=== PATIENT | female | born 1955 | race Caucasian/White ===

== ENCOUNTER 2016-03-10 06:20 | Inpatient (IN) | payer BC ==
[2016-02-17 13:14] VITALS: BMI 34.0
--- NOTE | 2016-02-17 13:42 | PAT Medication Instructions ---
Service Date Feb 17, 2016. Current Home Medication List Acetaminophen (Tylenol), 1,000 MG PO TID PRN Ibuprofen (Advil), 800 MG PO PRN Lansoprazole (Prevacid), 15 MG PO DAILY PRN for PRN Loperamide Hcl (Imodium), 2 MG PO PRN Multivitamin (Multivitamin), 1 TAB PO QAM Tramadol (Ultram), 50-100 MG PO TID PRN for PRN Medication Instructions For Your Scheduled Surgery - Check with surgeon for instructions: Ibuprofen (Advil), 800 MG PO PRN - Hold the following medications the morning of surgery: Loperamide Hcl (Imodium), 2 MG PO PRN Multivitamin (Multivitamin), 1 TAB PO QAM - Take the following medications the morning of surgery with a sip of water: Lansoprazole (Prevacid), 15 MG PO DAILY PRN for PRN (if needed) Acetaminophen (Tylenol), 1,000 MG PO TID PRN (if needed) Tramadol (Ultram), 50-100 MG PO TID PRN for PRN (okay to take up to 4 hours prior to surgery if needed) - Take the following medications as scheduled the night before surgery: Loperamide Hcl (Imodium), 2 MG PO PRN (if needed) Lansoprazole (Prevacid), 15 MG PO DAILY PRN for PRN (if needed) Acetaminophen (Tylenol), 1,000 MG PO TID PRN (if needed) Tramadol (Ultram), 50-100 MG PO TID PRN for PRN (if needed) If you have any questions please call us at [phone] (Tammy Asencio PA-C) or [phone] or [phone]
--- NOTE | 2016-02-17 14:36 | DIAGNOSTIC IMAGING REPORT ---
CHEST 2 VIEWS ROUTINE CLINICAL HISTORY: Preoperative evaluation COMPARISON STUDY: Chest radiograph February 05, 2010 FINDINGS: Lung volumes are at the lower limits of normal. There is no consolidation. Pulmonary vascularity is normal. Cardiac size is at the upper limits of normal. The appearance of the chest is unchanged. IMPRESSION: No acute cardiopulmonary findings. Electronically signed by: Marcial Christie M.D. 02/17/2016 2:35 PM
[2016-02-17 15:01] LABS: URINE APPEARANCE CLOUDY (CLEAR); URINE BILIRUBIN NEG (NEG); URINE COLOR YELLOW; URINE EPITHELIAL CELL AUTO >30 /lpf (0-5); URINE NITRITE NEG (NEG); URINE SPECIFIC GRAVITY 1.017 (1.000-1.030); UROBILINOGEN NEG (NEG); ZZUR CULT IF INDIC CLEAN CATCH YES
[2016-02-17 15:03] LABS: MANUAL MICROSCOPIC REQUIRED? NO; REVIEW REQ? NO
[2016-02-17 15:13] LABS: INR 0.9 (0.9-1.1); PARTIAL THROMBOPLASTIN RATIO 1.1
[2016-02-17 15:22] LABS: BUN/CREATININE RATIO 19.4 (10-20); CREATININE 0.69 mg/dl (0.60-1.20); POTASSIUM 4.1 mmol/L (3.5-5.1)
[2016-02-17 15:32] LABS: CALCIUM 9.3 mg/dl (8.5-10.1)
--- NOTE | 2016-03-08 11:28 | HISTORY & PHYSICAL EXAMINATION ---
DATE OF ADMISSION: 03/09/2016 CHIEF COMPLAINT: Left hip pain. HISTORY OF PRESENT ILLNESS: Bhavya is a 60-year-old female with a 5-year history of pain in her left hip. She rates her pain a 10/10. She has pain with her daily activities. She has limited standing and walking tolerance. Pain is worse with weightbearing. The patient uses a cane to ambulate. She has been on anti-inflammatories and has failed conservative treatment. She is scheduled for left hip replacement. PAST MEDICAL HISTORY: Hypercholesterolemia, osteoarthritis, rheumatoid arthritis, reflux, interstitial cystitis of the bladder. She denies heart disease, diabetes or DVT. PAST SURGICAL HISTORY: Right hip arthroplasty, , left breast biopsy, colonoscopy and cystoscopy. SOCIAL HISTORY: The patient rarely drinks alcohol. She lives in a 2-sarah home. She is and works for [employer]. FAMILY HISTORY: Negative for DVT. MEDICATIONS: Meloxicam 15 mg daily, atorvastatin 10 mg daily, Prevacid p.r.n., Imodium p.r.n., Tylenol p.r.n., ibuprofen 800 mg p.r.n., tramadol 50 mg p.r.n., multivitamin 1 daily. REVIEW OF SYSTEMS: See HPI. Ten other systems reviewed, all negative. PHYSICAL EXAMINATION: VITAL SIGNS: Height 5 feet 8 inches, weight 235 pounds. BMI is 36. GENERAL: This is a well-developed, well-nourished female who is alert and oriented x3. Mood and affect are appropriate. HEENT: Normocephalic, atraumatic. Mucous membranes are moist and intact. NECK: Supple without lymphadenopathy. HEART: Regular rate and rhythm without murmurs, rubs or gallops. LUNGS: Clear to auscultation without wheezes or rhonchi. ABDOMEN: Soft and nontender. Bowel sounds are equal and active. EXTREMITIES: No ecchymosis, redness or warmth. Logroll of the hip reproduces pain in the groin. She is neurovascularly intact with +5/5 strength. X-RAY EXAMINATION: AP and lateral views show joint space narrowing and osteophyte formation. IMPRESSION: Degenerative joint disease, left hip. PLAN: The patient will be admitted for a left total hip arthroplasty. We will plan on aspirin for DVT prophylaxis. PCP is Dr. Mcneil in [place], [place]. She has [facility] for home physical therapy.
[~2016-03-10] VITALS: Ht 177.8 cm; Wt 106.6 kg
[2016-03-10] VITALS (7 sets, daily range): BP systolic 120–153; BP diastolic 65–86; PULSE 63–76; TEMP 36.5–36.9; O2SAT 95–100; Ht 177.8 cm; Wt 106.6 kg
[~2016-03-10 06:20] MED LIST: ACET-1256 PO; ACETAMINOPHEN 500 MG TAB PO SCH; CEFAZOLIN 2000 MG/60 ML D5W 60 ML IV SCH; CeleBREX 200 MG CAP PO SCH; DEXAMETHASONE 4 MG TAB PO SCH; FAMOTIDINE 20 MG TAB PO SCH; GABAPENTIN 300 MG CAP PO SCH; IBUP-1050 PO; IMD/2 PO; LACTATED RINGER'S 1000ML 500 ML IV ONE; LACTATED RINGER'S 1000ML IV SCH; LANS15CA6 PO; METOCLOPRAMIDE HCL 10 MG TAB PO SCH; MULT-506 PO; OXYCODONE HCL 10 MG TABCR (OXYCONTIN) PO SCH; POLYMYXIN B SULFATE 100,000 UNITS in NSS 100ML IR SCH; ROPIVACAINE 5MG/ML 30 ML 150 MG, BUPIVACAINE/EPINEPHR 0.5% MPF 30 ML, KETOROLAC TROMETH... INFIL SCH; TRAM-10 PO; TRANEXAMIC ACID INJ 1,000 MG in SODIUM CHLORIDE 0.9% 100ML 100 ML IV SCH; VANCOMYCIN INJ 400 MG in NSS 100ML IR SCH
[2016-03-10] MEDS ORDERED: BUPIVACAINE 0.5 % 5 MG/1 ML PF 10ML VIAL ONE (06:24)
--- NOTE | 2016-03-10 07:02 | History & Physical Bridge Note ---
H&P Re-Evaluation Bridge Note: I have examined the patient, reviewed the History & Physical and in the interval since the performance of the History & Physical I have noted the following changes of clinical significance: No changes noted
[2016-03-10] MEDS ORDERED: ATOR10TA82 PO (07:38)
[2016-03-10] MEDS ORDERED: MELO7.5T5 PO (07:38)
[2016-03-10] MEDS ORDERED: MIDAZOLAM HCL 1 MG/ML 2ML VIAL ONE (08:24)
[2016-03-10] MEDS ORDERED: PROPOFOL IV EMULSION 10 MG/ML 20 ML VIAL IV ONE (08:45)
[2016-03-10] MEDS: TRANEXAMIC ACID INJ 1,000 MG in SODIUM CHLORIDE 0.9% 100ML 100 ML IV SCH ×2 (08:58→11:36)
[2016-03-10] MEDS ORDERED: ATROPINE SULFATE 0.1 MG/ML 5ML SYR IV PRN (09:00)
[2016-03-10] MEDS ORDERED: ONDANSETRON INJ 2 MG/ML 2 ML VIAL IV PRN ×2 (09:00→11:15)
[2016-03-10] MEDS ORDERED: EpHEDrine SULFATE INJ 50 MG/ML AMP IV PRN (09:00)
[2016-03-10] MEDS ORDERED: FENTANYL CITRATE INJ 50 MCG/1 ML 2 ML VIAL IV PRN (09:00)
[2016-03-10] MEDS ORDERED: ORTHO JOINT ANESTHETIC ONE ×2 (09:23→09:49)
[2016-03-10] MEDS ORDERED: LIDOCAINE HCL 2% 2 ML VIAL (20MG/ML) ONE (10:05)
[2016-03-10] MEDS ORDERED: BACITRACIN 50000 UNIT VIAL IR ONE (10:42)
[2016-03-10] MEDS ORDERED: POVIDONE-IODINE OP SOLN 30 ML BTL TOP ONE (10:56)
--- NOTE | 2016-03-10 11:09 | [facility] Post Operative Brief Note ---
Immediate Operative Summary Operative Date Mar 10, 2016. Pre-Operative Diagnosis Degenerative joint disease, left hip Post-Operative Diagnosis same as preop Procedure(s) Performed Left Total Hip Arthroplasty, Direct Anterior Approach, Uncemented Surgeon Dr. Forrest Conn Senior Administrator Support Surgeon(s) ARLEEN De Los Santos Estimated Blood Loss 150ML Findings djd obese Specimens A: Left Femoral Head Complication(s) None Disposition Recovery Room / PACU
[2016-03-10] MEDS ORDERED: TRAMADOL HCL 50 MG TAB PO PRN (11:15)
[2016-03-10] MEDS ORDERED: METOCLOPRAMIDE HCL INJ 5 MG/ML 2 ML VIAL IV PRN (11:15)
[2016-03-10] MEDS ORDERED: MAGNESIUM HYDROXIDE SUSP 30 ML UDC PO PRN (11:15)
[2016-03-10] MEDS ORDERED: ALUMINUM/MAGNESIUM/SIMETH (MAALOX MAX) 30 ML UDC PO PRN (11:15)
[2016-03-10] MEDS ORDERED: MoRPHine SULFATE 2 MG/ML CARP IV PRN (11:15)
[2016-03-10] MEDS ORDERED: BISACODYL 10 MG SUPP PR PRN (11:15)
[2016-03-10] MEDS ORDERED: DiphenhydrAMINE HCL 50 MG/ML VIAL IV PRN (11:15)
[2016-03-10] MEDS ORDERED: ZOLPIDEM TARTRATE 5 MG TAB PO PRN (11:15)
[2016-03-10] MEDS ORDERED: SOD PHOSPHATE/SOD BIPHOSPHATE ENEMA 132 ML BTL PR PRN (11:15)
--- NOTE | 2016-03-10 11:30 | DIAGNOSTIC IMAGING REPORT ---
LEFT HIP UNILATERAL 1 VIEW CLINICAL HISTORY: LT ANTERIOR TOTAL COMPARISON STUDY: None. FINDINGS: Total fluoroscopy time was 11 seconds. A single fluoroscopic spot image was obtained. There is a left total hip arthroplasty. No fracture or dislocation. The visualized hardware appears intact. Note, the entire acetabular cup is not included on this image. IMPRESSION: Fluoroscopy provided for left total hip arthroplasty. Electronically signed by: Noé Wallace M.D. 03/10/2016 11:28 AM
--- NOTE | 2016-03-10 11:52 | OPERATIVE REPORT ---
DATE OF OPERATION: 03/10/2016 PREOPERATIVE DIAGNOSIS: Degenerative arthritis, left hip. POSTOPERATIVE DIAGNOSIS: Same. PROCEDURE: Left total hip replacement. SURGEON: Dr. Conn. DEPUTY OF COUNTER INTELLIGENCE: LETICIA Mcadams. ANESTHESIA: Spinal. BLOOD LOSS: 150 mL. REPLACEMENT FLUIDS: 1800 mL of crystalloid. DRAINS: Hemovac x2. CULTURES: None. COMPLICATIONS: None. COMPONENTS USED: [employer] hip system: Acetabulum size 52, femur size 6 high offset, femoral head 0, neck length 36 mm. NOTE: Gonzalo Wheatley PA-C was present and assisted throughout due to the complicated nature of this case. He helped with preparation and set up, first assisted throughout and personally closed the fascial, subcutaneous and skin layers and applied the postoperative dressing. DESCRIPTION: Following satisfactory spinal, the patient was supine. The left leg was placed in the traction device and the right leg in the well leg moore. Leg was prepared with ChloraPrep and draped sterilely. Following a surgical time-out, an anterior approach was performed in the interval between the sartorius and tensor muscles. The approach was difficult. The patient had a thick hard subcutaneous fat layer. The fascia was divided and the circumflex femoral vessels were identified and ligated. There was a great deal of fat over the anterior capsule. An anterior capsulotomy was performed exposing the arthritic femoral neck and head which were trimmed and removed. The acetabular self-retraining retractor was placed. Acetabular reaming was completed. The 52 shell was impacted under fluoroscopic guidance into an anatomic position and secured with a dome screw. Local anesthetic and the poly liner were placed after irrigation. The femur was placed into position of external rotation, extension and adduction. The femoral canal was prepared up to the size 6. A trial reduction with a 0 neck length head showed the best soft tissue tension and leg lengths restored using fluoroscopy with anatomic landmarks. The hip was dislocated. The trial component removed. After irrigation with local anesthetic the final implant was placed. The hip was irrigated and reduced. A Betadine soak was performed for 5 minutes. The Betadine was then irrigated. The capsule was closed with 1-0 Vicryl interrupted. The fascia after a drain was placed with a running suture of 1 Vicryl, subcutaneous tissues with 1 and 2-0 Vicryl and the skin with a running subcuticular stitch of 3-0 V-Loc. Dermabond and a dry dressing were applied. The patient was returned to her bed in stable condition. I attest to the content of the Intraoperative Record and any orders documented therein. Any exceptio ns are noted below.
--- NOTE | 2016-03-10 12:03 | Anesthesiology Progress Note ---
Anesthesia Post Op Note Date & Time Mar 10, 2016 at 12:03 Vital Signs Pain Intensity: 0 Vital Signs Past 12 Hours Date Time Temp Pulse Resp B/P Pulse Ox O2 Delivery O2 Flow Rate FiO2 03/10/16 11:45 64 16 108/70 99 Nasal Cannula 2 03/10/16 11:38 37.0 61 16 115/72 100 Nasal Cannula 2 03/10/16 07:00 36.9 74 20 153/84 Notes Mental Status: alert / awake / arousable, participated in evaluation Pt Amnestic to Procedure: Yes Nausea / Vomiting: adequately controlled Pain: adequately controlled Airway Patency, RR, SpO2: stable & adequate BP & HR: stable & adequate Hydration State: stable & adequate Neuraxial Anesthesia: was administered, sensory block is resolving Anesthetic Complications: no major complications apparent
--- NOTE | 2016-03-10 12:19 | DIAGNOSTIC IMAGING REPORT ---
AP PELVIS, CROSSTABLE LATERAL LEFT HIP History: Left total hip arthroplasty. Degenerative arthritis. Postop. FINDINGS: The patient is status post a left total hip arthroplasty. The hardware is intact. No fracture or dislocation. Surgical drains are in place. Evidence for prior right total hip arthroplasty. IMPRESSION: Left total hip arthroplasty. No evidence for hardware complication. Electronically signed by: Noé Wallace M.D. 03/10/2016 12:17 PM
[2016-03-10] MEDS ORDERED: LOPERAMIDE HCL 2 MG CAP PO PRN (13:00)
[2016-03-10] MEDS: D5W AND 1/2NSS + 20MEQ KCL 1,000 ML IV SCH ×2 (13:34→22:32)
[2016-03-10] MEDS: ACETAMINOPHEN 500 MG TAB PO SCH ×2 (16:25→23:53)
[2016-03-10] MEDS: KETOROLAC TROMETHAMINE 30 MG/ML VIAL IV. SCH ×2 (16:26→20:25)
[2016-03-10] MEDS ORDERED: TRANEXAMIC ACID INJ 1,000 MG in SODIUM CHLORIDE 0.9% 100ML 100 ML IV ONE (17:30)
[2016-03-10] MEDS: CEFAZOLIN IV 2,000 MG in DEXTROSE 5% 50ML 50 ML IV SCH (17:48)
[2016-03-10] MEDS: ASPIRIN 81 MG ECTAB PO SCH (20:26)
[2016-03-10] MEDS: OXYCODONE HCL IR 5 MG TAB (IMMEDIATE RELEASE) PO PRN (22:26)
[2016-03-11] MEDS: CEFAZOLIN IV 2,000 MG in DEXTROSE 5% 50ML 50 ML IV SCH (01:45)
[2016-03-11] MEDS: KETOROLAC TROMETHAMINE 30 MG/ML VIAL IV. SCH ×2 (01:45→07:51)
[2016-03-11 03:15] VITALS: BP 141/84; PULSE 65; TEMP 36.5; O2SAT 98
[2016-03-11] MEDS: OXYCODONE HCL IR 5 MG TAB (IMMEDIATE RELEASE) PO PRN ×2 (03:22→12:30)
[2016-03-11 06:55] LABS: BASO % 0.1 %; BASO ABS # 0.01 K/uL (0-0.2); COMPLETE YES; EOS % 0.1 %; HEMATOCRIT 31.2 % (37-47); IG% 0.4 %; LYMPH % 10.9 %; LYMPH ABS # 1.16 K/uL (1.2-3.4); MEAN CELL VOLUME 83.6 fL (80-100); MEAN CORPUSCULAR HEMOGLOBIN 28.7 pg (25-34); MEAN CORPUSCULAR HGB CONC 34.3 g/dl (32-36); MEAN PLATELET VOLUME 9.1 fL (7.4-10.4); NEUT % 82.5 %; PLATELET COUNT 144 K/uL (130-400); RED BLOOD COUNT 3.73 M/uL (4.2-5.4); WHITE BLOOD COUNT 10.67 K/uL (4.8-10.8)
[2016-03-11 07:29] LABS: BUN/CREATININE RATIO 15.9 (10-20); CALCIUM 8.1 mg/dl (8.5-10.1); CREATININE 0.76 mg/dl (0.60-1.20); POTASSIUM 4.3 mmol/L (3.5-5.1)
--- NOTE | 2016-03-11 07:47 | Orthopedic Progress Note ---
Orthopedic Progress Note Date of Service Mar 11, 2016. Subjective Post OP Day: 1 Reports: feeling well, Denies: SOB, calf pain, chest pain, light headedness, nausea / vomiting Objective calves soft nontender, N/V intact, hip located, dressing C/D/I, A&O x3, toes mobile, hemovac drainage (200/50cc per shift) Date Time Temp Pulse Resp B/P Pulse Ox O2 Delivery O2 Flow Rate FiO2 03/11/16 03:15 36.5 65 16 141/84 98 Room Air 03/10/16 23:55 Room Air 03/10/16 23:05 36.6 65 16 128/73 95 Room Air 03/10/16 15:36 36.6 72 18 129/86 100 Nasal Cannula 2.0 03/10/16 15:30 Nasal Cannula 2.0 03/10/16 14:32 67 16 141/84 100 2.0 03/10/16 13:35 73 16 120/65 98 2.0 03/10/16 13:08 36.5 63 14 132/77 97 Nasal Cannula 2.0 03/10/16 13:06 Nasal Cannula 03/10/16 13:05 Nasal Cannula 03/10/16 12:30 36.6 76 14 148/84 95 Nasal Cannula 03/10/16 12:15 36.9 66 16 96/71 100 Nasal Cannula 2 03/10/16 12:05 66 16 121/73 100 Nasal Cannula 2 03/10/16 11:55 66 16 126/73 100 Nasal Cannula 2 03/10/16 11:45 64 16 108/70 99 Nasal Cannula 2 03/10/16 11:38 37.0 61 16 115/72 100 Nasal Cannula 2 Laboratory Results 24 Hours: Test 03/11/16 06:30 White Blood Count 10.67 K/uL Red Blood Count 3.73 M/uL Hemoglobin 10.7 g/dL Hematocrit 31.2 % Mean Corpuscular Volume 83.6 fL Mean Corpuscular Hemoglobin 28.7 pg Mean Corpuscular Hemoglobin Concent 34.3 g/dl Platelet Count 144 K/uL Mean Platelet Volume 9.1 fL Neutrophils (%) (Auto) 82.5 % Lymphocytes (%) (Auto) 10.9 % Monocytes (%) (Auto) 6.0 % Eosinophils (%) (Auto) 0.1 % Basophils (%) (Auto) 0.1 % Neutrophils # (Auto) 8.81 K/uL Lymphocytes # (Auto) 1.16 K/uL Monocytes # (Auto) 0.64 K/uL Eosinophils # (Auto) 0.01 K/uL Basophils # (Auto) 0.01 K/uL Assessment & Plan Assessment: POD#1 sp left BRISA Inhouse Planning Pain Management: Celebrex, PO Tylenol, Oxy IR DVT Prophylaxis: TEDs, SCDs, ASA Discharge Planning Discharge Planning: home with home health ([facility])
--- NOTE | 2016-03-11 07:48 | Discharge Instructions ---
Discharge Instructions Admission Reason for Admission: Left Hip Arthritis Discharge Discharge Diagnosis / Problem: SP LEFT BRISA Discharge Goals Goal(s): Decrease discomfort, Improve function, Increase independence Activity Recommendations Activity Limitations: per Instructions/Follow-up section . Instructions / Follow-Up Instructions / Follow-Up ACTIVITY RECOMMENDATIONS: SELF CARE INSTRUCTIONS AFTER TOTAL HIP REPLACEMENT : Direct Anterior Approach Until the incision and soft tissues around your hip have healed, there is a possibility that the hip prosthesis could dislocate. A. Hip flexion ( Up & Down out of chair or steps ) may be difficult. This is normal. B. Numbness in front of the thigh is also normal for a few weeks. C. Use hand rails when walking on stairs. D. Wear low heeled shoes with non-slip soles. E. Be sure that your floors are free of things that could trip you - throw rugs , electrical cords, small objects. Avoid wet and waxed floors, especially with crutches and canes. F. Try to walk several times a day with rest periods between. G. Continue with all the exercises taught to you in the hospital. Again, make walking a part of your daily routine. SPECIAL CARE INSTRUCTIONS: VERY IMPORTANT TO READ AND REVIEW A. You may still be at risk for phlebitis and blood clots. 1. Wear surgical stockings (STORMY hose) for 2 weeks after surgery to improve circulation and reduce swelling. 2. Take Aspirin 81mg twice daily for 4 weeks or as directed by your doctor. This is your blood thinner. 3. High risk patients may be prescribed a stronger blood thinner if necessary. 4. If you are on Coumadin normally, your family doctor/professor of environmental engineering should monitor your blood work. Expect a phone call the day of or the day after bloodwork is drawn to adjust your dosage. B. You must take antibiotics before having dental work, bladder, bowel and other surgery. Your doctor will provide you with a permanent card to carry describing precautions. C. Call [facility] if you have a fever, redness or swelling around the incision, cloudy drainage from incision, or sudden increase in pain in your hip, not relieved by your regular pain medication. D. Please call the office at if you have any concerns or questions about your operation or recovery. * YOU MAY SHOWER, NO TUB BATHS UNTIL CLEARED BY YOUR DOCTOR. - Keep an extra close eye on the top portion of your incision. Be sure to keep clean & dry. * WEAR STORMY HOSE 20 HOURS PER DAY FOR 2 WEEKS. * YOU MAY PROGRESS FROM A WALKER, TO A CANE, TO INDEPENDENT AT YOUR OWN PACE. * MOST PATIENTS WILL HAVE HOME NURSING FOR THERAPY. IF YOU DECIDE TO DO OUTPATIENT PHYSICAL THERAPY, PLEASE SCHEDULE THIS 3 TIMES PER WEEK. * DERMABOND Prineo- This is a mesh tape dressing that is covered with glue. It should remain in place until the incision is properly healed, usually 10-14 days. This dressing is designed to naturally slough off. You may trim the excess mesh tape as it peels off. Incision may be briefly wet in a shower. Dry immediately by blotting with a clean, dry towel. Do not bath or swim until instructed by your doctor. Do not scratch, rub, or pick at the dressing. Do not apply any topical ointments or lotions until dressing is completely removed and/or instructed by your doctor. There may be a small piece of suture material at one end of your incision. Do not pull or trim this. If it is bothersome or catching on clothing, you may cover it with a band-aid. FOLLOW UP VISIT: If appointment is not already scheduled: Please call [facility] to make a follow-up appointment for 2 weeks after your surgery at . Current Hospital Diet Patient's current hospital diet: Vegetarian Diet Discharge Diet Recommended Diet: Regular Diet Procedures Procedures Performed: Left Total Hip Arthroplasty, Direct Anterior Approach, Uncemented Pending Studies Studies pending at discharge: no Medical Emergencies . Who to Call and When: Medical Emergencies: If at any time you feel your situation is an emergency, please call 911 immediately. . Non-Emergent Contact Non-Emergency issues call your: Primary Care Provider . "Provider Documentation" section prepared by Tierra Fletcher. VTE Core Measure Inpt VTE Proph given/why not?: Other Anticoagulation, T.E.D. Stockings, SCD's
[2016-03-11] MEDS: ACETAMINOPHEN 500 MG TAB PO SCH (07:50)
[2016-03-11] MEDS ORDERED: ONDA8TAB6 PO (07:51)
[2016-03-11] MEDS ORDERED: ACET-1256 PO (07:51)
[2016-03-11] MEDS ORDERED: ASPEC81 PO (07:51)
[2016-03-11] MEDS ORDERED: CLB200 PO (07:51)
[2016-03-11] MEDS ORDERED: SENN1TAB80 PO (07:51)
[2016-03-11] MEDS ORDERED: RXC5 PO (07:51)
[2016-03-11 08:02] VITALS: BP 130/84; PULSE 66; TEMP 36.4; O2SAT 100
--- NOTE | 2016-03-11 08:23 | Anesthesiology Progress Note ---
Anesthesia Post Op Note Date & Time Mar 11, 2016 at 08:22 Vital Signs Vital Signs Past 12 Hours Date Time Temp Pulse Resp B/P Pulse Ox O2 Delivery O2 Flow Rate FiO2 03/11/16 08:02 36.4 66 16 130/84 100 Room Air 03/11/16 03:15 36.5 65 16 141/84 98 Room Air 03/10/16 23:55 Room Air 03/10/16 23:05 36.6 65 16 128/73 95 Room Air Notes Mental Status: alert / awake / arousable, participated in evaluation Pt Amnestic to Procedure: Yes Nausea / Vomiting: adequately controlled Pain: adequately controlled Airway Patency, RR, SpO2: stable & adequate BP & HR: stable & adequate Hydration State: stable & adequate Neuraxial Anesthesia: sensory block resolved Anesthetic Complications: no major complications apparent
[2016-03-11] MEDS: ASPIRIN 81 MG ECTAB PO SCH (08:59)
[2016-03-11] MEDS ORDERED: MULTIVITAMIN TAB PO SCH (09:00)
[2016-03-11] MEDS ORDERED: PANTOprazole SOD 40 MG TAB PO SCH (09:00)
[2016-03-11] MEDS: D5W AND 1/2NSS + 20MEQ KCL 1,000 ML IV SCH (09:00)
[2016-03-11 10:19] VITALS: BP 130/84; PULSE 66; TEMP 36.4; O2SAT 100
[2016-03-12] MEDS ORDERED: CeleBREX 200 MG CAP PO SCH (21:00)
--- NOTE | 2016-03-17 15:07 | DISCHARGE SUMMARY ---
DISCHARGE DIAGNOSIS: Degenerative joint disease left hip. SECONDARY DIAGNOSES: Hypercholesterolemia, osteoarthritis, rheumatoid arthritis, gastroesophageal reflux disease, interstitial cystitis. CONSULTS: None. COMPLICATIONS: None. PROCEDURES: Left total hip arthroplasty performed by Dr. Stiven Conn on 03/10/2016. BRIEF HISTORY: As dictated in history and physical. HOSPITAL SUMMARY: The patient was admitted on the above-noted date and had the above-noted surgery performed which she tolerated well. On the first postoperative day, she was feeling well and had no complaints. Calves were soft, nontender, neurovascularly intact. Hip was located. Dressings clean, dry and intact. Toes were mobile. Vital signs were stable. She is afebrile. Hemoglobin was 10.7 and she was started on physical therapy protocol and continued on DVT prophylaxis and pain management. She was progressing with her physical therapy and remaining stable and it was felt that she could be discharged to home on -03/11/2016. For further review, please see chart. LAB AND X-RAY DATA: As per chart. DISCHARGE INSTRUCTIONS: The patient was discharged to home in satisfactory condition on 03/11/2016. DIET: Regular/vegetarian. ACTIVITY INSTRUCTIONS: Follow BRISA instruction sheets and special care instructions as noted. Follow up Dr. Conn in 2 weeks. The patient to call for appointment if one has not been made for you. DISCHARGE MEDICATIONS: Aspirin 81 mg p.o. b.i.d., Celebrex 200 mg p.o. b.i.d., Zofran 8 mg p.o. q. 8 hours p.r.n., oxycodone 5-10 mg p.o. q. 4 hours p.r.n. and senna laxative 17.2 mg p.o. at bedtime. Resume taking atorvastatin dosage unknown daily, Prevacid 15 mg p.o. daily p.r.n., Imodium 2 mg p.o. p.r.n., multivitamin 1 tab p.o. q.a.m., acetaminophen 1000 mg p.o. q. 8 hours for 30 days. Stop taking ibuprofen, meloxicam and tramadol.
== END 2016-03-11 13:33 | disposition home health service (06) | DRG 470 ==
LOC: ENRESERVDT → ENRESERVTM → C.ACU 06:20 → C.3E 11:12
PROVIDERS: ADMIT Orthopaedic Surgery; ATTEND Orthopaedic Surgery
PROC: 0SRB04A Replacement of Left Hip Joint with Ceramic on Polyethylene Synthetic Substitute, Uncemented, Open Approach (ICD-10-PCS; principal; 2016-03-10 09:15)
DX: M16.12 Unilateral primary osteoarthritis, left hip (principal); M06.9 Rheumatoid arthritis, unspecified; E78.00 Pure hypercholesterolemia, unspecified; E78.5 Hyperlipidemia, unspecified; N30.10 Interstitial cystitis (chronic) without hematuria; E66.9 Obesity, unspecified; Z96.641 Presence of right artificial hip joint; Z68.33 Body mass index [BMI] 33.0-33.9, adult; Z79.1 Long term (current) use of non-steroidal anti-inflammatories (NSAID); Z79.899 Other long term (current) drug therapy; Z79.891 Long term (current) use of opiate analgesic